=== PATIENT | female | born 1975 | race Asian ===

== ENCOUNTER 2016-10-30 17:35 | Emergency (ER) | payer BC, OTHER ==
[~2016-10-30] VITALS: Ht 165.1 cm; Wt 52.0 kg
[2016-10-30 17:42] VITALS: TEMP 36.6; Ht 165.1 cm; Wt 52.0 kg
[2016-10-30] MEDS ORDERED: AMOXICILLIN 250 MG CAP PO ONE (18:00)
--- NOTE | 2016-10-30 19:00 | DIAGNOSTIC IMAGING REPORT ---
CT SCAN OF THE BRAIN WITHOUT IV CONTRAST CLINICAL HISTORY: Head injury. COMPARISON STUDY: No priors. TECHNIQUE: Unenhanced axial CT scan of the brain is performed from the vertex to the skull base. Automated dose control exposure was utilized. CT DOSE: 748.60 mGy.cm FINDINGS: Brain parenchyma: The brain parenchyma is normal in appearance. There is no hemorrhage, mass effect, or evidence of acute territorial ischemia by CT criteria. Griffin-white matter is preserved. No extra-axial fluid collection is seen. Ventricles, sulci, cisterns: Normal in configuration. Intracranial vasculature: The visualized intracranial vasculature at the skull base is normal in appearance. Calvarium: There is no depressed calvarial fracture. Sinuses and mastoids: The visualized paranasal sinuses are clear. The mastoid air cells are well pneumatized. Orbits: The bony orbits are grossly intact. IMPRESSION: No acute intracranial abnormality. Electronically signed by: Milo Jones M.D. 10/30/2016 6:58 PM Dictated Date/Time: 10/30/2016 6:56 PM
--- NOTE | 2016-10-30 19:14 | DIAGNOSTIC IMAGING REPORT ---
CT SCAN OF THE FACIAL BONES WITHOUT IV CONTRAST CLINICAL HISTORY: Head injury. Dental fracture. COMPARISON STUDY: CT of the brain performed concurrently on 10/30/2016. TECHNIQUE: High-resolution CT scan of the facial bones is performed. Images are reviewed in the axial, sagittal, and coronal planes. IV contrast was not administered for this examination. CT DOSE: Reported separately under the concurrently performed CT scan of the brain. FINDINGS: The skeletal structures are well mineralized. There is no evidence of facial bone fracture. The bony orbits are intact and the orbital contents are within normal limits. The zygomatic arches, nasal bones, and pterygoid plates are preserved. The maxilla and mandible are intact. There are no layering blood products within the paranasal sinuses. The sinuses and mastoids are clear. The visualized calvarium and upper cervical spine are maintained. Partially imaged brain parenchyma is within normal limits. There is fracture through the right mandibular central incisor. This is best seen on coronal image #15. No additional dental fracture is seen. IMPRESSION: 1. There is no evidence of facial bone fracture. 2. There is a fracture through the right mandibular central incisor. Electronically signed by: Milo Jones M.D. 10/30/2016 7:12 PM Dictated Date/Time: 10/30/2016 7:07 PM
[2016-10-30] MEDS ORDERED: AMOX500C3 PO (19:43)
[2016-10-30] MEDS ORDERED: TRAM-10 PO (19:43)
[2016-10-30] MEDS ORDERED: TRAMADOL HCL 50 MG HOME PACK PO ONE (19:45)
[2016-10-30] MEDS ORDERED: AMOXICILLIN HOME PACK 250 MG/TAB PO ONE (19:45)
[2016-10-30 20:02] VITALS: BP 129/95; PULSE 75; O2SAT 100
--- NOTE | 2016-10-30 20:54 | EMERGENCY ROOM VISIT NOTE ---
History First contact with patient: 17:39 Chief Complaint: FACIAL PAIN/INJURY Stated Complaint: FACIAL INJURY, History of Present Illness The patient is a 41 year old female who presents to the Emergency Room with complaints of a head injury and dental injury after being hit in the back of her head with a football. This caused her to lose balance and fall forward onto her face, breaking her upper central incisor. The patient reports a headache and mild nausea. She denies any neck pain, back pain or other musculoskeletal injuries. The patient denies any loss of consciousness. She denies any prior history of concussions. She rates her discomfort a 4 out of 10. Review of Systems 10 system review was performed and was negative except for pertinent positives and negatives as indicated in history of present illness Past Medical/Surgical History Medical Problems: (1) No significant past medical history Surgical Problems: (1) No history of previous surgery Family History Unremarkable Social History Smoking Status: Never Smoker Alcohol Use: none Marital Status: Housing Status: lives with family Current/Historical Medications Scheduled Amoxicillin (Amoxil), 500 MG PO TID Scheduled PRN Tramadol (Ultram), 1-2 TAB PO Q4H PRN for Pain Allergies Coded Allergies: No Known Allergies (Unverified , 10/30/16) Physical Exam Vital Signs Date Time Temp Pulse Resp B/P Pulse Ox O2 Delivery O2 Flow Rate FiO2 10/30/16 20:02 75 18 129/95 100 10/30/16 18:02 133/97 10/30/16 17:42 36.6 85 18 129/109 99 Room Air Pain Rating (0-10): 0 Physical Exam CONSTITUTIONAL: Healthy and well nourished. Alert and oriented X 3 with positive affect. Patient does not appear in any acute distress. HEENT: Normocephalic, atraumatic. Pupils equal, round and reactive. Patient does not have any scalp lacerations or hematomas. She is mildly tender through the posterior scalp. No subconjunctival hemorrhage or epistaxis. OROPHARYNX: The patient has a transverse fracture of the right maxillary central incisor. The patient has no tenderness to palpation of the maxillary bone or mandible. No other intraoral lacerations or lip laceration noted. NECK: Full active range of motion without discomfort. RESPIRATORY: Clear to auscultation bilaterally with no wheezing, crackles, rhonchi or stridor. CARDIOVASCULAR: Regular rate and rhythm with no murmurs, rubs or gallops. MUSCULOSKELETAL: Full range of motion of all joints without discomfort. INTEGUMENTARY: No rash or other significant dermatologic conditions noted. NEUROLOGIC: No focal neurologic deficits noted. Normal finger to nose test. Negative pronator drift. No ataxia with ambulation. Medical Decision & Procedures ER Provider Diagnostic Interpretation: Noncontrast CT of the head and facial bones were normal except for the patient' s dental fracture. Radiologist reports were also reviewed. Medications Administered Medications (Trade) Dose Ordered Sig/Fariba Route Start Time Stop Time Status Last Admin Dose Admin Amoxicillin (Amoxil Cap) 500 mg NOW ONCE PO 10/30/16 18:00 10/30/16 18:01 DC 10/30/16 18:00 500 MG Tramadol HCl (Ultram Home Pack) 1 homepack UD ONCE PO 10/30/16 19:45 10/30/16 19:46 DC 10/30/16 19:58 1 HOMEPACK Amoxicillin (Amoxil 250MG Home Pack) 1 homepack UD ONCE PO 10/30/16 19:45 10/30/16 19:46 DC 10/30/16 19:58 1 HOMEPACK ED Course Patient history and physical exam were performed. Nurse's notes were reviewed. The patient was administered Ultram 50 mg and amoxicillin [address] of the facial bones and head were normal. The patient does have a dental fracture. I did discuss this case further with Dr. Pal, ED attending physician, who suggested dental wax and dental follow-up. The patient reports that she does have a dentist, but does not know the name of the practice. She was encouraged to call them tomorrow to see if they will treat her for her fracture. If not, she was provided contact information for Dr. Donahue's office. The patient was provided home packs and prescriptions for Ultram and amoxicillin. She was also provided dental wax for further stability. She was given instructions on a clear/soft food diet. The patient was also advised that her symptoms are also consistent with a concussion. She was instructed to contact her PCP for further concussion management. She was instructed to rest and avoid strenuous activities. A concussion educational handout was provided. The patient was happy with plan of care, voiced understanding of all discharge instructions, and rated her discomfort a 3 out of 10 at the time of discharge. Impression Primary Impression: Dental fracture Additional Impressions: Concussion Facial contusion Departure Information Dispostion Home / Self-Care Condition GOOD Prescriptions Amoxicillin (AMOXIL) 500 Mg Cap 500 MG PO TID for 10 Days, #30 CAP Prov: Willie Horowitz PA 10/30/16 Tramadol (Ultram) 50 Mg Tab 1-2 TAB PO Q4H Y for Pain, #20 TAB For Initial Treatment Prov: Willie Horowitz PA 10/30/16 Referrals Mamadou Donahue D.M.D. Forms HOME CARE DOCUMENTATION FORM, IMPORTANT VISIT INFORMATION Patient Instructions Concussion, My [facility] Additional Instructions Call your choice of dentist office tomorrow, or try calling Dr. Donahue's office. Tell them that you have a broken tooth from a fall, and was evaluated in the emergency department. Soft food/liquid diet until reevaluated by your dentist. Intermittently apply ice as needed for swelling. Ibuprofen 600 mg and/or Tylenol 1000 mg every 8 hours. You may also alternate these medications for more effective pain relief: Ibuprofen --4 HRS--> Tylenol --4 HRS--> ibuprofen --4 HRS--> Tylenol .... Ultram if needed for worse pain. Read concussion handout. Follow-up with your family doctor as needed for further concussion management. Problem Qualifiers Additional Impressions: Concussion Encounter type: initial encounter Loss of consciousness presence/duration: without LOC Qualified Codes: S06.0X0A - Concussion without loss of consciousness, initial encounter Facial contusion Encounter type: initial encounter Qualified Codes: S00.83XA - Contusion of other part of head, initial encounter
== END 2016-10-30 20:03 | disposition home or self-care (01) ==
LOC: EDBD 17:35 → C.EDD 17:36
DX: S06.0X0A Concussion without loss of consciousness, initial encounter (principal); S00.83XA Contusion of other part of head, initial encounter; S02.5XXA Fracture of tooth (traumatic), initial encounter for closed fracture; W21.01XA Struck by football, initial encounter; W01.0XXA Fall on same level from slipping, tripping and stumbling without subsequent striking against object, initial encounter